=== PATIENT | male | born 1985 | race Two or more races ===

== ENCOUNTER → 2021-02-06 | Emergency (ER) | payer SELFPAY ==
[~2021-02-06] VITALS: Ht 172.7 cm; Wt 81.8 kg
[2021-02-06] MEDS: PERTUSS(ACELL),DIPH,TET VAC/PF 0.5 ML SYRINGE IM. ONE (11:06)
[2021-02-06 11:08] VITALS: BP 124/71
[2021-02-06] MEDS: CeFAZolin 1 GM/DEXTROSE 50 ML IV ONE (11:11)
[2021-02-06] MEDS: SODIUM CHLORIDE 0.9% 1,000 ML IV ONE (11:11)
[2021-02-06] MEDS: FentaNYL CITRATE PF 100 MCG/2 ML VIAL IVP ONE (11:11)
== END | disposition home or self-care (01) ==
LOC: EMS 10:53
DX: S71.132A Puncture wound without foreign body, left thigh, initial encounter (principal); S91.031A Puncture wound without foreign body, right ankle, initial encounter; W32.0XXA Accidental handgun discharge, initial encounter; Y93.89 Activity, other specified; Y92.89 Other specified places as the place of occurrence of the external cause; Y99.8 Other external cause status
CPT/HCPCS: 90471; 90715; 96361; 96365; 96374; 99285; 99291